=== PATIENT | male | born 1980 | race African-American/Black ===

== ENCOUNTER 2025-05-19 12:43 | Emergency (ER) | payer OTHER ==
--- NOTE | 2025-05-19 12:58 | EDPHYS ---
Physician Documentation [facility] Name: Paddy Mays Age: 45 yrs Sex: Male : 1980 Arrival Date: 05/19/2025 Time: 12:43 Bed 9 Private MD: ED Physician Sharath Davis HPI: 05/19 13:11 This 45 yrs old Black Male presents to ER via Ambulatory with complaints of Skin sb4 Problem. 13:17 Patient states he had been experiencing a runny nose so he was cleaning off the tissue sb4 a lot. He states he developed a rash on his nostrils and then spread to his inner cheeks. He denies any pain, states it is mildly itchy. Has been putting Vaseline on it but wanted to have it evaluated to make sure there was nothing more serious. Historical: - Allergies: 12:52 No Known Allergies; bp - PMHx: 12:52 None; bp - Immunization history:: Adult Immunizations up to date. - Infectious Disease History:: Denies. - Social history:: Smoking status: Patient denies any tobacco usage or history of. ROS: 13:17 Constitutional: Negative for fever, chills, and weight loss, sb4 13:17 Skin: Positive for rash, of the right nostril and left nostril, 13:17 All other systems are negative, Exam: 13:17 Constitutional: This is a well developed, well nourished patient who is awake, alert, sb4 and in no acute distress. Head/Face: Normocephalic, atraumatic. Eyes: Extra-ocular motions intact. Periorbital areas with no swelling, redness, or edema. ENT: Mucous membranes moist. Respiratory: No increased work of breathing, no retractions or nasal flaring. 13:17 Skin: rash a mild rash is noted, contact dermatitis, on the right cheek, nose and left cheek, Vital Signs: 12:51 BP 156 / 88; Pulse 78; Resp 16; Temp 98; Pulse Ox 100% ; bp MDM: 12:48 Medical Screening Exam initiated sb4 13:17 Data reviewed: vital signs, nurses notes. Counseling: I had a detailed discussion with sb4 the patient and/or guardian regarding the historical points, exam findings, and any diagnostic results supporting the discharge/admit diagnosis, the need for outpatient follow up, for definitive care, to return to the emergency department if symptoms worsen or persist or if there are any questions or concerns that arise at home. Administered Medications: No medications were administered Disposition Summary: 05/19/25 12:57 Discharge Ordered Notes: Location: Home sb4 Problem: new sb4 Symptoms: have improved sb4 Condition: Stable sb4 Diagnosis - Dermatitis, unspecified sb4 Followup: sb4 - With: Emergency Department - When: As needed - Reason: Worsening of condition Discharge Instructions: - Discharge Summary Sheet sb4 - Contact Dermatitis, [id number] sb4 Forms: - Patient Portal Instructions sb4 - Leadership Thank You Letter sb4 Prescriptions: - Medrol (Lele) 4 mg Oral Tablets, Dose Pack - take 1 tablet ORAL route as directed - follow package instructions; 1 packet; sb4 Refills: 0, Product Selection Permitted Signatures: Jef Aguila, RN RN Samantha Breaux PA-C PA-C sb4
--- NOTE | 2025-05-19 12:58 | ER ---
Nurse's Notes [facility] Name: Paddy Mays Age: 45 yrs Sex: Male : 1980 Arrival Date: 05/19/2025 Time: 12:43 Bed 9 Private MD: Diagnosis: Dermatitis, unspecified Presentation: 05/19 12:51 Chief complaint: Patient states: FACIAL RASH. Coronavirus screen: At this time, the bp client does not indicate any symptoms associated with coronavirus-19. Ebola Screen: No symptoms or risks identified at this time. Initial Sepsis Screen: Does the patient meet any 2 criteria? No. Patient's initial sepsis screen is negative. Does the patient have a suspected source of infection? No. Patient's initial sepsis screen is negative. Risk Assessment: Do you want to hurt yourself or someone else? Patient reports no desire to harm self or others. Onset of symptoms is unknown. 12:51 Method Of Arrival: Ambulatory bp 12:51 Acuity: RADHA 5 bp Triage Assessment: 12:52 General: Appears in no apparent distress. Behavior is calm, cooperative, appropriate bp for age. Pain: Denies pain. EENT: No deficits noted. Neuro: No deficits noted. Cardiovascular: No deficits noted. Respiratory: No deficits noted. GI: No signs and/or symptoms were reported involving the gastrointestinal system. : No signs and/or symptoms were reported regarding the genitourinary system. Derm: Reports FACIAL RASH. Musculoskeletal: No deficits noted. Historical: - Allergies: 12:52 No Known Allergies; bp - PMHx: 12:52 None; bp - Immunization history:: Adult Immunizations up to date. - Infectious Disease History:: Denies. - Social history:: Smoking status: Patient denies any tobacco usage or history of. Assessment: 13:06 General: Appears in no apparent distress. comfortable, Behavior is calm, cooperative, rg5 appropriate for age. Neuro: Level of Consciousness is awake, alert, obeys commands, Oriented to person, place, time, situation. Respiratory: Airway is patent Trachea deviated to right Respiratory effort is. Vital Signs: 12:51 BP 156 / 88; Pulse 78; Resp 16; Temp 98; Pulse Ox 100% ; bp ED Course: 12:44 Patient arrived in ED. mr 12:46 [facility]elum [facility] sb4 12:46 Sharath Davis MD is Attending Physician. sb4 12:51 Triage completed. bp 12:53 Arm band placed on. bp 13:03 Dariusz Gauthier, RN is Primary Nurse. rg5 13:06 No provider procedures requiring assistance completed. Patient did not have IV access rg5 during this emergency room visit. Administered Medications: No medications were administered Outcome: 12:57 Discharge ordered by . sb4 13:06 Discharged to home ambulatory, rg5 13:06 Condition: stable 13:06 Discharge instructions given to patient, Instructed on discharge instructions, Demonstrated understanding of instructions, Prescriptions given X 1, 13:07 Patient left the ED. rg5 Signatures: Callie Luevano, Marquise Reg mr Jef Aguila, RN RN Samantha Breaux PA-C PA-C sb4 Dariusz Gauthier, RN RN rg5
[2025-05-19 13:18] VITALS: BP 156/88; TEMP 98; O2SAT 100
== END 2025-05-19 13:07 | disposition home or self-care (01) ==
LOC: ER 12:43
DX: L25.9 Unspecified contact dermatitis, unspecified cause (principal)
CPT/HCPCS: 99283